=== PATIENT | female | born 2000 | race Caucasian/White ===

== ENCOUNTER 2021-05-05 22:09 | Outpatient (CLI) | payer SELFPAY ==
--- NOTE | 2021-05-06 01:30 | Ultrasound Report ---
Of the ultrasound INDICATION: Bleeding FINDINGS: Live intrauterine in cephalic position. PAWAN measures 8.0 cm. Placenta is anterior grade 2. heart rate 1 45 bpm. Ultrasound age 37 weeks 3 days. No abruption is identified. Feta l weight 3056 g. IMPRESSION: Single live intrauterine measuring 7 weeks 3 days by ultrasound. No abruption is seen. Signer Name: Joesph Lion MD Signed: 05/06/2021 1:26 AM Workstation Name: [id number]
[2021-05-06] MEDS ORDERED: MORPHINE 4 MG/1 ML INJ IM ONE (03:46)
[2021-05-06] MEDS ORDERED: LACTATED RINGERS 1,000 ML ONE (04:31)
[2021-05-06 06:33] VITALS: BP 109/66
== END 2021-05-06 07:56 | disposition home or self-care (01) ==
LOC: TRG 22:09 → APU 22:13 → TRG 05-06 07:56
PROVIDERS: ATTEND Obstetrics & Gynecology Gynecology
DX: O46.8X3 Other antepartum hemorrhage, third trimester (principal); Z3A.39 39 weeks gestation of pregnancy
CPT/HCPCS: 76816; J2270

== ENCOUNTER 2021-05-09 07:41 | Inpatient (IN) | payer SELFPAY ==
--- NOTE | 2021-05-09 09:08 | History and Physical Report ---
History of Present Illness Date of examination: 05/09/21 Chief complaint: ctx History of present illness: at 40.0wks by LMP c/w EDC. care at [facility]. Pt was suppose to go to [facility] but pt chose to come here. Pt admits to movement, denies LOF or vag bleed. Denies headache. Blood type O positive, neg antibody screen, rubella immune, RPR neg, HepBsAg neg, HIV neg, GBS result not seen Past History Past Medical History: no pertinent history Past Surgical History: no surgical history Social history: no significant social history - Obstetrical History Expected Date of Delivery: 05/09/21 Actual Gestation: 40 Week(s) 0 Day(s) : 2 Number of Living Children: 1 Medications and Allergies Allergies Allergy/AdvReac Type Severity Reaction Status Date / Time Penicillins Allergy Itching Verified 05/09/21 08:51 Home Medications Medication Instructions Recorded Confirmed Last Taken Type One Daily Tablet 1 tab PO DAILY 05/09/21 05/09/21 1 Day Ago History ~05/08/21 Review of Systems All systems: negative (ctx) - Vital Signs Vital signs: Vital Signs Pulse Pulse Ox 72 99 05/09/21 08:04 05/09/21 08:04 Temp Pulse Resp BP Pulse Ox 98.3 F 78 16 109/68 97 05/09/21 08:16 05/09/21 08:54 05/09/21 08:16 05/09/21 08:43 05/09/21 08:54 - Physical Exam Breasts: Positive: deferred Cardiovascular: Regular rate Lungs: Positive: Normal air movement Abdomen: Positive: soft Genitourinary (Female): Positive: normal external genitalia Vulva: both: normal Uterus: Positive: enlarged Extremities: Positive: normal - Obstetrical FHR: category 1 Uterine Contraction Monitor Mode: External Cervical Dilatation: 4 Cervical Effacement Percentage: 70 station: -1 Uterine Contraction Pattern: Regular Uterine Contraction Intensity: Moderate Results All other labs normal. Assessment and Plan Term in latent labor, but having painful contractions, GBS unknown 1. Admit to labor and delivery, amp for unknown GBS, expectant mgt 2. May have IV pain med or epidural if desired Expect
[2021-05-09] MEDS ORDERED: ACETAMINOPHEN 325 MG TAB PO PRN (09:09)
[2021-05-09] MEDS ORDERED: LOPERAMIDE 2 MG CAP PO PRN (09:09)
[2021-05-09] MEDS ORDERED: LIDOCAINE (2%) 20 MG/1 ML VIAL 20 ML MDV INFILTRATI ONE (09:09)
[2021-05-09] MEDS ORDERED: ONDANSETRON 4 MG/2 ML INJ IV PRN ×2 (09:09→18:01)
[2021-05-09] MEDS ORDERED: OXYTOCIN 10 UNIT/1 ML INJ IM PRN (09:09)
[2021-05-09] MEDS ORDERED: CARBOPROST TROMETHAMINE 250 MCG/1 ML INJ IM PRN (09:09)
[2021-05-09] MEDS ORDERED: NalbUPHINE 10 MG/1 ML INJ IV PRN (09:09)
[2021-05-09] MEDS ORDERED: METHYLERGONOVINE MALEATE 0.2 MG/ML VIAL IM PRN (09:09)
[2021-05-09] MEDS ORDERED: fentaNYL 100 MCG/2 ML INJ IV PRN (09:09)
[2021-05-09] MEDS ORDERED: miSOPROStol 200 MCG TAB PR PRN (09:09)
[2021-05-09] MEDS ORDERED: MINERAL OIL 30 ML ORAL LIQD PO PRN (09:09)
[2021-05-09] MEDS ORDERED: PROMETHAZINE 25 MG TAB PO PRN ×2 (09:09→18:01)
[2021-05-09] MEDS ORDERED: NALOXONE 0.4 MG/1 ML INJ IV PRN (09:09)
[2021-05-09] MEDS ORDERED: AMPICILLIN/NS 2 GM/100 ML 2 GM/100 ML BAG IV ONE (09:09)
[2021-05-09] MEDS ORDERED: TERBUTALINE 1 MG/1 ML INJ SUB-Q PRN (09:09)
[2021-05-09] MEDS ORDERED: ePHEDrine SULFATE 50 MG/1 ML INJ IV PRN (09:09)
[2021-05-09] MEDS ORDERED: LACTATED RINGERS 1,000 ML IV SCH (09:15)
[2021-05-09] MEDS ORDERED: OXYTOCIN DRIP 30 UNITS/500 ML BAG IV SCH ×2 (10:00)
[2021-05-09] MEDS ORDERED: VANCOMYCIN/NS 1 GM/250 ML 1 GM/250 ML BAG IV SCH (10:00)
[2021-05-09 10:13] LABS: Hematocrit 37.1 % (30.3-42.9); Mean Corpuscular HGB Conc 32 % (30-34); Mean Corpuscular Volume 84 fl (79-97); Platelet Count 193 K/mm3 (140-440); Red Blood Count 4.44 M/mm3 (3.65-5.03); Red Cell Distribution Width 14.1 % (13.2-15.2)
--- NOTE | 2021-05-09 15:54 | Procedure Note ---
OB Delivery Note - Delivery Date of Delivery: 05/09/21 Surgeon: ESTHER TRUJILLO Estimated blood loss: 200cc - Vaginal Delivery presentation: vertex Delivery position: OA Delivery induction: none Delivery augmentation: rupture of membranes Delivery monitor: external FHT, external uterine, internal FHT Route of delivery: Delivery placenta: spontaneous Delivery cord: 3 umbilical vessels Episiotomy: none Delivery laceration: other (small abraision at perineum, no repair needed) Anesthesia: none Delivery comments: pt AROM clear fluid moderate amount at 13:45pm, pt given nubain for pain because she declined epidural at 8cm dilation. IUPC placed. Pt then complete and pushing. SAVD of viable male infant uncomplicated and placenta delivered compl ete with 3vessel cord. Pt sustained abraision to perineum and no repair needed. Bimanual massage done and uterus firm. EBL 200cc. Mom and baby stable. - Infant A at 1 minute: 8 at 5 minutes: 9 Infant Gender: Male (3210g; clear amniotic fluid)
[2021-05-09] MEDS ORDERED: diphenhydrAMINE 25 MG CAP PO PRN (18:01)
[2021-05-09] MEDS ORDERED: PROMETHAZINE 25 MG RECT SUPP PR PRN (18:01)
[2021-05-09] MEDS ORDERED: MAGNESIUM HYDROXIDE (MOM) ORAL LIQD UDC PO PRN (18:01)
[2021-05-09] MEDS ORDERED: WITCH HAZEL/ GLYCERIN PAD TP PRN (18:01)
[2021-05-09] MEDS ORDERED: LANOLIN/ZINC/DIMETHICONE (LANSINOH) 7 GM TP PRN (18:01)
[2021-05-09] MEDS: IBUPROFEN 600 MG TAB PO SCH (21:17)
[2021-05-10] MEDS: oxyCODONE /ACETAMINOPHEN 5-325MG TAB PO PRN ×3 (01:05→19:58)
[2021-05-10] MEDS: IBUPROFEN 600 MG TAB PO SCH ×2 (06:39→12:02)
[2021-05-10 06:47] LABS: Hematocrit 30.5 % (30.3-42.9); Hemoglobin 9.7 gm/dl (10.1-14.3)
[2021-05-10] MEDS: PRENATAL VIT27-FE FUMARATE-FOLIC ACID VIT TAB PO SCH (09:07)
--- NOTE | 2021-05-10 09:26 | Progress Note ---
Assessment and Plan A: day 1 S/P . Anemia. P: Supplement with iron. Anticipate discharge tomorrow if patient continues to do well. Subjective - Subjective Date of service: 05/10/21 Principal diagnosis: day 1 S/P Patient reports: appetite normal, voiding normally, pain well controlled, flatus, ambulating normally, no dizzy ambulation, no nauseated [place]: doing well Objective - Vital Signs Latest vital signs: Vital Signs Temp Pulse Resp BP BP Pulse Ox Pulse Ox 05/10/21 08:17 97.9 F 64 18 111/61 98 05/10/21 08:00 98 05/10/21 02:05 16 05/10/21 01:05 24 05/10/21 00:21 99.1 F 68 20 107/62 97 05/09/21 21:13 98.5 F 64 20 114/76 99 05/09/21 20:00 98 05/09/21 18:12 98 05/09/21 18:06 98 F 67 18 105/56 98 05/09/21 17:10 75 96 05/09/21 17:05 73 97 05/09/21 17:00 71 97 05/09/21 16:58 81 124/63 05/09/21 16:55 87 97 05/09/21 16:50 90 97 05/09/21 16:45 78 97 05/09/21 16:42 81 119/66 05/09/21 16:40 87 96 05/09/21 16:35 78 99 05/09/21 16:30 78 98 05/09/21 16:27 82 111/57 05/09/21 16:25 67 98 05/09/21 16:20 68 99 05/09/21 16:15 72 97 05/09/21 16:12 87 117/70 05/09/21 16:10 87 97 05/09/21 16:05 84 97 05/09/21 16:00 85 98 05/09/21 15:58 65 117/72 05/09/21 15:55 75 98 05/09/21 15:50 85 98 05/09/21 15:45 80 99 05/09/21 15:43 86 120/68 05/09/21 15:40 75 99 05/09/21 15:38 98.8 F 20 05/09/21 15:35 72 100 05/09/21 15:30 74 100 05/09/21 15:25 82 98 05/09/21 15:20 67 100 05/09/21 15:15 71 100 05/09/21 15:10 65 99 05/09/21 15:05 80 100 05/09/21 15:00 89 99 05/09/21 14:55 76 100 05/09/21 14:50 69 100 05/09/21 14:45 76 99 05/09/21 14:40 72 100 05/09/21 14:35 73 100 05/09/21 14:30 66 100 05/09/21 14:25 83 100 05/09/21 14:20 77 99 05/09/21 14:15 69 99 05/09/21 14:10 66 100 05/09/21 14:07 76 119/61 05/09/21 14:05 76 100 05/09/21 14:00 86 99 05/09/21 13:55 94 H 99 05/09/21 13:49 98 H 99 05/09/21 13:44 99 H 99 05/09/21 13:39 93 H 99 05/09/21 13:34 88 99 05/09/21 13:29 106 H 99 05/09/21 13:24 87 99 05/09/21 13:22 79 92 05/09/21 13:19 89 100 05/09/21 13:14 90 98 05/09/21 13:13 78 90 05/09/21 13:09 94 H 99 05/09/21 13:04 106 H 99 05/09/21 12:59 104 H 98 05/09/21 12:54 85 98 05/09/21 12:49 88 98 05/09/21 12:44 88 98 05/09/21 12:39 72 91 05/09/21 12:34 85 99 05/09/21 12:29 99 H 99 05/09/21 12:24 101 H 100 05/09/21 12:19 88 87 05/09/21 12:14 96 H 99 05/09/21 12:10 89 94 05/09/21 12:09 89 97 05/09/21 12:04 73 99 05/09/21 11:59 94 H 100 05/09/21 11:54 85 100 05/09/21 11:49 86 100 05/09/21 11:48 90 112/78 05/09/21 11:44 89 99 05/09/21 11:39 83 100 05/09/21 11:34 84 98 05/09/21 11:29 70 99 05/09/21 11:24 89 99 05/09/21 11:19 117 H 98 05/09/21 11:14 83 98 05/09/21 11:12 90 93 05/09/21 11:09 89 100 05/09/21 11:04 89 99 05/09/21 10:59 107 H 100 05/09/21 10:58 99 05/09/21 10:57 98.4 F 16 05/09/21 10:54 98 H 98 05/09/21 10:49 95 H 99 05/09/21 10:44 85 96 05/09/21 10:39 85 100 05/09/21 10:34 76 99 05/09/21 10:29 85 99 05/09/21 10:24 71 97 05/09/21 10:19 91 H 96 05/09/21 10:14 74 97 05/09/21 10:11 74 83 L 05/09/21 10:09 78 98 05/09/21 10:04 78 95 05/09/21 10:00 60 76 L 05/09/21 09:59 74 99 05/09/21 09:54 83 99 05/09/21 09:49 73 99 05/09/21 09:44 76 100 05/09/21 09:39 77 98 05/09/21 09:34 67 97 05/09/21 09:30 76 114/72 05/09/21 09:29 82 99 Intake and Output 05/09/21 05/10/21 05/10/21 23:59 07:59 15:59 Intake Total 240 240 Output Total 400 350 Balance -160 -110 Intake: Intake, Free Water 240 240 Output: Urine 400 350 Void 400 350 Other: Total, Output Amount 400 100 # Voids Void 1 1 - Exam Cardiovascular: Present: Regular rate, No murmurs Lungs: Present: Clear to auscultation Abdomen: Present: normal appearance, soft, normal bowel sounds. Absent: distention, tenderness, guarding, rigidity Uterus: Present: normal, firm, fundal height below umbilicus (fundus firm and midline at 1 FB below umbilicus). Absent: bogginess, tenderness Extremities: Absent: tenderness, edema - Labs Labs: Abnormal lab results 05/09/21 05/10/21 Range/Units 09:38 06:21 WBC 19.1 H (4.5-11.0) K/mm3 Hgb 9.7 L (10.1-14.3) gm/dl MCH 27 L (28-32) pg
[2021-05-10] MEDS: FERROUS SULFATE 325 MG TAB PO SCH (12:02)
[2021-05-10 14:27] LABS: Basophils # (Auto) 0.1 K/mm3 (0.0-0.1); Basophils % (Auto) 0.5 % (0.0-1.8); Eosinophils % (Auto) 0.2 % (0.0-4.3); Hematocrit 32.3 % (30.3-42.9); Hemoglobin 10.5 gm/dl (10.1-14.3); Lymphocytes # (Auto) 2.2 K/mm3 (1.2-5.4); Lymphocytes % (Auto) 16.2 % (13.4-35.0); Mean Corpuscular HGB Conc 32 % (30-34); Mean Corpuscular Volume 85 fl (79-97); Monocytes # (Auto) 0.7 K/mm3 (0.0-0.8); Monocytes % (Auto) 5.4 % (0.0-7.3); Platelet Count 172 K/mm3 (140-440); Red Blood Count 3.78 M/mm3 (3.65-5.03); Red Cell Distribution Width 14.5 % (13.2-15.2)
[2021-05-10 17:52] LABS: Bilirubin,Urine NEG (Negative); Blood,Urine MOD (Negative); Color,Urine Yellow (Yellow); Protein,Urine <15 mg/dL mg/dL (Negative); Urobilinogen,Urine < 2.0 mg/dL (<2.0)
[2021-05-10 18:17] LABS: RBC,Urine < 1.0 /HPF (0.0-6.0); WBC,Urine < 1.0 /HPF (0.0-6.0)
[2021-05-11] MEDS: oxyCODONE /ACETAMINOPHEN 5-325MG TAB PO PRN ×2 (03:00→06:55)
[2021-05-11] MEDS: FERROUS SULFATE 325 MG TAB PO SCH ×2 (03:01→10:32)
--- NOTE | 2021-05-11 06:45 | Progress Note ---
Assessment and Plan A: day 2 S/P . Anemia. P: Discharge patient home today. Discussed with patient discharge instructions and warning signs. Advised patient to continue taking her vitamin and iron supplement at home. Advised patient to avoid intercourse, lifting, housework. Advised patient to follow up at [facility] in 2 weeks. Patient voiced understanding of all instructions. Subjective - Subjective Date of service: 05/11/21 Principal diagnosis: day 2 S/P Interval history: Patient desires discharge home today. Patient reports: appetite normal, voiding normally, pain well controlled, flatus, ambulating normally, no dizzy ambulation, no nauseated [place]: doing well, nursing well Objective - Vital Signs Latest vital signs: Vital Signs Temp Pulse Resp BP Pulse Ox Pulse Ox 05/11/21 03:00 18 05/11/21 00:35 97.6 F 77 18 111/80 98 05/10/21 20:06 98 05/10/21 19:58 18 05/10/21 17:06 97.4 F L 73 18 106/62 98 05/10/21 12:31 98.6 F 79 18 106/64 96 05/10/21 08:17 97.9 F 64 18 111/61 98 05/10/21 08:00 98 Intake and Output 05/10/21 05/10/21 05/11/21 15:59 23:59 07:59 Intake Total 120 360 Balance 120 360 Intake: Oral 120 360 Other: Total, Intake Amount 120 120 # Voids Void 1 1 - Exam Cardiovascular: Present: Regular rate, No murmurs Lungs: Present: Clear to auscultation Abdomen: Present: normal appearance, soft. Absent: distention, tenderness, guarding, rigidity Uterus: Present: normal, firm, fundal height below umbilicus (fundus firm and midline at 1 FB below umbilicus). Absent: bogginess, tenderness Extremities: Absent: tenderness, edema - Labs Labs: Abnormal lab results 05/10/21 05/10/21 Range/Units 06:21 13:45 WBC 13.3 H (4.5-11.0) K/mm3 Hgb 9.7 L (10.1-14.3) gm/dl Seg Neutrophils % 77.7 H (40.0-70.0) % Seg Neutrophils # 10.3 H (1.8-7.7) K/mm3
--- NOTE | 2021-05-11 06:47 | Discharge Summary ---
Providers - Providers Date of Admission: 05/09/21 09:09 Date of discharge: 05/11/21 Attending physician: ESTHER TRUJILLO Primary care physician: FRED CORTEZ MD Hospitalization Reason for admission: active labor Delivery: Episiotomy: none Other procedures: none complications: none Discharge diagnosis: IUP at term delivered baby: male Pertinent studies: Labs Hospital course: Stable hospital course Condition at discharge: Good Disposition: 01 HOME / SELF CARE / HOMELESS - Discharge Diagnoses (1) Term delivered Status: Acute (2) Anemia Status: Acute Plan - Provider Discharge Summary Activity: routine, no sex for 6 weeks, no heavy lifting 4 weeks, no strenuous exercise Diet: routine Instructions: routine Additional instructions: Continue taking your vitamin and iron supplement at home. Follow up at [facility] in 2 weeks. Call your doctor immediately for: * Fever > 100.5 * Heavy vaginal bleeding ( >1 pad per hour) * Severe persistent headache * Shortness of breath * Reddened, hot, painful area to leg or breast - Follow up plan Follow up: [facility] [Referring] - 14 Days
[2021-05-11] MEDS: PRENATAL VIT27-FE FUMARATE-FOLIC ACID VIT TAB PO SCH (10:32)
[2021-05-11 10:57] VITALS: BP 117/77
== END 2021-05-11 12:55 | disposition home or self-care (01) | DRG 807 ==
LOC: TRG 07:41 → APU 07:42 → LD 08:55 → TRG 09:18 → OB 17:46
PROVIDERS: ADMIT Obstetrics & Gynecology; ATTEND Obstetrics & Gynecology
PROC: 10E0XZZ Delivery of Products of Conception, External Approach (ICD-10-PCS; principal; 2021-05-09)
PROC: 10907ZC Drainage of Amniotic Fluid, Therapeutic from Products of Conception, Via Natural or Artificial Opening (ICD-10-PCS; 2021-05-09)
DX: O90.81 Anemia of the puerperium (principal); Z37.0 Single live birth; Z3A.40 40 weeks gestation of pregnancy; Z20.822 Contact with and (suspected) exposure to COVID-19
CPT/HCPCS: 36415; 59025; 81001; 85014; 85018; 85025; 85027; 86592; 86850; 86900; 86901; 87086; 96360; G0378; J2300; J2405; J3010; J3370; U0003